=== PATIENT | male | born 1990 | race Caucasian/White ===

== ENCOUNTER 2017-08-09 01:01 | Emergency (ER) | payer SELFPAY ==
[2017-08-09] MEDS ORDERED: Acetaminophen 500 MG Tab PO ONE (01:18)
[2017-08-09] MEDS ORDERED: Ketorolac 30 MG/ML SDV IVPUSH ONE (01:24)
[2017-08-09] MEDS ORDERED: Sodium Chloride 0.9% 2.5 ML Syringe FLUSH PRN (01:24)
[2017-08-09] MEDS ORDERED: Sodium Chloride 0.9% 1,000 ML IV ONE (01:24)
[2017-08-09] MEDS ORDERED: Lidocaine 2% Viscous Solution 15 ML Cup PO ONE (01:24)
[2017-08-09] MEDS ORDERED: Sodium Chloride 0.9% 10 ML Syringe FLUSH PRN (01:24)
[2017-08-09] MEDS ORDERED: Ondansetron 4 MG/2 ML SDV IVPUSH ONE (01:24)
--- NOTE | 2017-08-09 01:28 | EDM.PDOC ---
ED HPI GENERAL MEDICAL PROBLEM - General Chief Complaint: Gastrointestinal Problem Stated Complaint: THROWING UP Time Seen by Provider: 08/09/17 01:12 - History of Present Illness INITIAL COMMENTS - FREE TEXT/NARRATIVE: HISTORY AND PHYSICAL: History of present illness: The patient is a 26-year-old male with no stated medical history who presents with a one-week history of swollen glands in his neck which he used cough lozenges and it seemed to get better and then woke less than 24 hours ago with sore throat return of the swollen glands subjective fevers chills coughing occasionally productive of phlegm with some blood and one episode of posttussive emesis. He's not had any shortness of breath or discrete chest pain and he has no abdominal pain. He has been trying to drink fluids but he has not had that much today. He says he normally drinks a lot of energy drinks and caffeinated products but he's been trying to drink Gatorade water and Sprite today. He was concerned because when he coughed he had some blood-tinged and there is severe pain in his throat when he coughs. He says is discomforting when he swallows but he is able to take fluids. He has a diffuse headache but no posterior neck pain Review of systems: As per history of present illness and below otherwise all systems reviewed and negative. Past medical history: As per history of present illness and as reviewed below otherwise noncontributory. Surgical history: As per history of present illness and as reviewed below otherwise noncontributory. Social history: No reported history of drug or alcohol abuse. Family history: As per history of present illness and as reviewed below otherwise noncontributory. Physical exam: Gen.: Well-developed well-nourished man who is nontoxic and speaks with slightly worse voice but it is not muffled and he is not breathless. Vital signs are noted by me HEENT: Atraumatic, normocephalic, pupils reactive, negative for conjunctival pallor or scleral icterus, mucous membranes tacky, throat has bilaterally enlarged tonsils and inflamed uvula which is midline and the tonsils are not kissing and there is diffuse posterior oropharyngeal erythema, there is anterior cervical adenopathy which is tender but no posterior adenopathy and no nuchal rigidity, neck supple, nontender, trachea midline. Lungs: Clear to auscultation, breath sounds equal bilaterally, chest nontender. No work of breathing or sensory muscle use no wheezing or stridor Heart: S1S2, regular rhythm and tachycardic rate on my evaluation, negative for clicks, rubs, or JVD. Abdomen: Soft, nondistended, nontender. Negative for masses or hepatosplenomegaly. Slightly hypoactive bowel sounds Pelvis: Stable nontender. Genitourinary: Deferred. Rectal: Deferred. Extremities: Atraumatic, negative for cords or calf pain. Neurovascular unremarkable. Neuro: Awake, alert, oriented. Cranial nerves II through XII unremarkable. Cerebellum unremarkable. Motor and sensory unremarkable throughout. Exam nonfocal. Diagnostics: CBC CMP mono spot rapid strep influenza chest x-ray Therapeutics: IV fluids Tylenol Zofran Toradol viscous lidocaine motrin Patient's temp is now down to 100.6 and he is feeling a little bit better. He is aware of all testing results including positive influenza A. I discussed with him the option of a prescription for Tamiflu along with its positives and negatives in light of recent studies and the patient says he is likely not going to take that. I will prescribe [facility] for Phenergan with codeine and amoxicillin for his throat. Impression: Influenza A, pharyngitis Definitive disposition and diagnosis as appropriate pending reevaluation and review of above. 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 [No Known Home Meds] 08/09/17 [History] Past Medical History - Past Health History Medical/Surgical History: Denies Medical/Surgical History HEENT History: Reports: None Cardiovascular History: Reports: None Respiratory History: Reports: None Gastrointestinal History: Reports: None Genitourinary History: Reports: None Musculoskeletal History: Reports: None Neurological History: Reports: None Psychiatric History: Reports: None Endocrine/Metabolic History: Reports: None Hematologic History: Reports: None Immunologic History: Reports: None Oncologic (Cancer) History: Reports: None Dermatologic History: Reports: None - Infectious Disease History Infectious Disease History: Reports: None Social & Family History - Family History Family Medical History: Noncontributory - Tobacco Use Smoking Status *Q: Never Smoker - Caffeine Use Caffeine Use: Reports: Energy Drinks - Recreational Drug Use Recreational Drug Use: No ED ROS GENERAL - Review of Systems Review Of Systems: ROS reveals no pertinent complaints other than HPI. ED EXAM, GENERAL - Physical Exam Exam: See Below (See dictation) Course - Vital Signs Last Recorded V/S: Last Vital Signs Temp 38.1 C 08/09/17 02:52 Pulse 107 H 08/09/17 02:52 Resp 18 08/09/17 02:52 BP 102/48 L 08/09/17 02:52 Pulse Ox 94 L 08/09/17 02:52 - Orders/Labs/Meds Orders: Active Orders 24 hr Category Date Time Status Pulse Oximetry [RC] ASDIRECTED Care 08/09/17 01:23 Active Chest 2V [CR] Stat Exams 08/09/17 01:23 Taken CULTURE STREP A CONFIRMATION [] Stat Lab 08/09/17 01:21 Results STREP SCRN A RAPID W CULT CONF [] Stat Lab 08/09/17 01:21 Results Ibuprofen [Motrin] Med 08/09/17 02:53 Once 800 mg PO ONETIME ONE Sodium Chloride 0.9% [Saline Flush] Med 08/09/17 01:24 Active 10 ml FLUSH ASDIRECTED PRN Sodium Chloride 0.9% [Saline Flush] Med 08/09/17 01:24 Active 2.5 ml FLUSH ASDIRECTED PRN Saline Lock Insert [OM.PC] Stat Oth 08/09/17 01:23 Ordered Medication Orders Sodium Chloride (Saline Flush) 10 ml FLUSH ASDIRECTED PRN PRN Reason: Keep Vein Open Sodium Chloride (Saline Flush) 2.5 ml FLUSH ASDIRECTED PRN PRN Reason: Keep Vein Open Labs: Laboratory Tests 08/09/17 08/09/17 08/09/17 Range/Units 02:09 02:09 02:09 WBC 6.59 (4.0-11.0) K/uL RBC 5.17 (4.50-5.90) M/uL Hgb 15.5 (13.0-17.0) g/dL Hct 43.7 (38.0-50.0) % MCV 84.5 (80.0-98.0) fL MCH 30.0 (27.0-32.0) pg MCHC 35.5 (31.0-37.0) g/dL RDW Std Deviation 40.1 (28.0-62.0) fl RDW Coeff of Adrian 13 (11.0-15.0) % Plt Count 245 (150-400) K/uL MPV 10.40 (7.40-12.00) fL Neut % (Auto) 77.2 (48.0-80.0) % Lymph % (Auto) 6.1 L (16.0-40.0) % Osborne % (Auto) 16.2 H (0.0-15.0) % Eos % (Auto) 0.3 (0.0-7.0) % Baso % (Auto) 0.2 (0.0-1.5) % Neut # (Auto) 5.1 (1.4-5.7) K/uL Lymph # (Auto) 0.4 L (0.6-2.4) K/uL Osborne # (Auto) 1.1 H (0.0-0.8) K/uL Eos # (Auto) 0.0 (0.0-0.7) K/uL Baso # (Auto) 0.0 (0.0-0.1) K/uL Nucleated RBC % 0.0 /100WBC Nucleated RBCs # 0 K/uL Sodium 138 (136-146) mmol/L Potassium 3.9 (3.5-5.1) mmol/L Chloride 106 (98-110) mmol/L Carbon Dioxide 23 (21-31) mmol/L BUN 9 (6.0-23.0) mg/dL Creatinine 0.9 (0.6-1.5) mg/dL Est Cr Clr Drug Dosing 109.14 mL/min Estimated GFR (MDRD) > 60.0 ml/min Glucose 110 (60-110) mg/dL Calcium 9.1 (8.8-10.8) mg/dL Total Bilirubin 0.3 (0.1-1.5) mg/dL AST 14 (5-40) IU/L ALT 21 (8-54) IU/L Alkaline Phosphatase 80 (40-150) Total Protein 6.9 (6.0-8.0) g/dL Albumin 4.0 (3.5-5.0) g/dL Globulin 2.9 (2.0-3.5) g/dL Albumin/Globulin Ratio 1.4 (1.3-2.8) Monoscreen NEGATIVE (NEG) Meds: Medications Generic Name Dose Route Start Last Admin Trade Name Tresq PRN Reason Stop Dose Admin Sodium Chloride 10 ml 08/09/17 01:24 Saline Flush FLUSH ASDIRECTED PRN Keep Vein Open Sodium Chloride 2.5 ml 08/09/17 01:24 Saline Flush FLUSH ASDIRECTED PRN Keep Vein Open Discontinued Medications Generic Name Dose Route Start Last Admin Trade Name Freq PRN Reason Stop Dose Admin Acetaminophen 1,000 mg 08/09/17 01:18 08/09/17 01:39 Tylenol Extra Strength PO 08/09/17 01:19 1,000 mg ONETIME ONE Administration Sodium Chloride 1,000 mls @ 999 mls/hr 08/09/17 01:24 08/09/17 01:39 Normal Saline IV 08/09/17 02:24 999 mls/hr STAT ONE Administration Ketorolac Tromethamine 30 mg 08/09/17 01:24 08/09/17 01:41 Toradol IVPUSH 08/09/17 01:25 30 mg ONETIME ONE Administration Lidocaine HCl 15 ml 08/09/17 01:24 08/09/17 01:40 Xylocaine 2% Viscous PO 08/09/17 01:25 15 ml ONETIME ONE Administration Ondansetron HCl 4 mg 08/09/17 01:24 08/09/17 01:40 Zofran IVPUSH 08/09/17 01:25 4 mg ONETIME ONE Administration Departure - Departure Time of Disposition: 02:54 Disposition: Home, Self-Care 01 Condition: Good Clinical Impression: Influenza A Pharyngitis Qualifiers: Pharyngitis/tonsillitis etiology: unspecified etiology Qualified Code(s): J02.9 - Acute pharyngitis, unspecified - Discharge Information Referrals: PCP,None [Primary Care Provider] - Forms: ED Department Discharge Additional Instructions: The following information is given to patients seen in the emergency department who are being discharged to home. This information is to outline your options for follow-up care. We provide all patients seen in our emergency department with a follow-up referral. The need for follow-up, as well as the timing and circumstances, are variable depending upon the specifics of your emergency department visit. If you don't have a primary care physician on staff, we will provide you with a referral. We always advise you to contact your personal physician following an emergency department visit to inform them of the circumstance of the visit and for follow-up with them and/or the need for any referrals to a consulting specialist. The emergency department will also refer you to a specialist when appropriate. This referral assures that you have the opportunity for followup care with a specialist. All of these measure are taken in an effort to provide you with optimal care, which includes your followup. Under all circumstances we always encourage you to contact your private physician who remains a resource for coordinating your care. When calling for followup care, please make the office aware that this follow-up is from your recent emergency room visit. If for any reason you are refused follow-up, please contact the [facility] emergency department at and ask to speak to the emergency department charge nurse. [facility] Primary care- [place] [address] Push hydration and take medications as prescribed. Rest and use over-the- counter Tylenol and/or ibuprofen for fever and bodyaches. Use cough medicine as prescribed. Please call our clinic or your provider this morning for follow-up appointment in the next few days for reevaluation and further care and return to ER as needed and as discussed. You have been prescribed Phenergan with codeine, and amoxicillin via [facility] ; please take these medications as prescribed - My Orders Last 24 Hours: My Active Orders 08/09/17 01:21 CULTURE STREP A CONFIRMATION [] Stat STREP SCRN A RAPID W CULT CONF [RM] Stat 08/09/17 01:23 Pulse Oximetry [RC] ASDIRECTED Chest 2V [CR] Stat Saline Lock Insert [OM.PC] Stat 08/09/17 01:24 Sodium Chloride 0.9% [Saline Flush] 10 ml FLUSH ASDIRECTED PRN Sodium Chloride 0.9% [Saline Flush] 2.5 ml FLUSH ASDIRECTED PRN 08/09/17 02:53 Ibuprofen [Motrin] 800 mg PO ONETIME ONE - Assessment/Plan Last 24 Hours: My Active Orders 08/09/17 01:21 CULTURE STREP A CONFIRMATION [RM] Stat STREP SCRN A RAPID W CULT CONF [RM] Stat 08/09/17 01:23 Pulse Oximetry [RC] ASDIRECTED Chest 2V [CR] Stat Saline Lock Insert [OM.PC] Stat 08/09/17 01:24 Sodium Chloride 0.9% [Saline Flush] 10 ml FLUSH ASDIRECTED PRN Sodium Chloride 0.9% [Saline Flush] 2.5 ml FLUSH ASDIRECTED PRN 08/09/17 02:53 Ibuprofen [Motrin] 800 mg PO ONETIME ONE
[2017-08-09 02:33] LABS: CHLORIDE,CL 106 mmol/L (98-110); SODIUM,NA 138 mmol/L (136-146)
[2017-08-09] MEDS ORDERED: Ibuprofen 800 MG Tab PO ONE (02:53)
--- NOTE | 2017-08-09 11:29 | CR ---
EXAM DATE: 08/09/17 PATIENT'S AGE: 26 Patient: LAURENT ADKINS Facility: [place], [place] Site . Site : 1990 Study: XRay Chest CXR 2v [id number]/10/2018 2:03:03 AM Ordering Physician: Alivia Morse Final Report: INDICATION: Cough since yesterday TECHNIQUE: Chest radiograph 2 views COMPARISON: None FINDINGS: Mediastinum: The heart silhouette is normal in size and morphology. The mediastinum is normal in appearance. Lungs: Both lungs are unremarkable in appearance. No sign of pleural effusion seen. No pneumothorax is identified. Bones and soft tissue: Unremarkable for age. IMPRESSION: 1. No acute cardiopulmonary disease is seen. Dictated by: Ozzy Liang MD @ 08/09/2017 02:04:46 (Electronic Signature) Report Signed by Proxy. BOOM
== END 2017-08-09 03:07 | disposition home or self-care (01) ==
LOC: MW.ED 01:01
DX: J10.1 Influenza due to other identified influenza virus with other respiratory manifestations (principal)
CPT/HCPCS: 36415; 71046; 80053; 85025; 86308; 87081; 87804; 87880; 96361; 96374; 96375; 99284; A9270; J1885; J2405; J7040

== ENCOUNTER 2019-09-21 15:49 | Emergency (ER) | payer OTHER ==
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
[2019-09-21] MEDS ORDERED: Diphtheria,Pertussis(Acell),Tetanus Vaccine 0.5 ML Syringe IM ONE (17:24)
[2019-09-21] MEDS ORDERED: Lidocaine 1% 10 ML MDV INJECT ONE (17:24)
[2019-09-21] MEDS ORDERED: Bacitracin Oint 1 GM U/D Packet TOP ONE (17:46)
--- NOTE | 2019-09-21 17:53 | CR ---
Right forearm: 2 views of the right forearm were obtained. Comparison: No prior right forearm exam. Joint spaces within the elbow and wrist are preserved. No fracture or other bony abnormality is seen. Impression: 1. No abnormality is identified on 2 view right forearm exam. Diagnostic code #1 This report was dictated in [place] Standard Time
== END 2019-09-21 20:20 | disposition home or self-care (01) ==
LOC: MW.ED 15:49
DX: S01.111A Laceration without foreign body of right eyelid and periocular area, initial encounter (principal); S50.811A Abrasion of right forearm, initial encounter; S09.90XA Unspecified injury of head, initial encounter; R22.0 Localized swelling, mass and lump, head; Z23 Encounter for immunization; W29.3XXA Contact with powered garden and outdoor hand tools and machinery, initial encounter
CPT/HCPCS: 12011; 73090; 90471; 90715; 99283; J2001

== ENCOUNTER 2019-10-02 16:52 | Emergency (ER) | payer OTHER | END 2019-10-02 17:10 | disposition left against medical advice (07) | LOC: MW.ED 16:52 | DX: Z53.21 Procedure and treatment not carried out due to patient leaving prior to being seen by health care provider (principal) ==